=== PATIENT | female | born 1950 | race Caucasian/White ===

== ENCOUNTER 2020-02-17 07:58 | Outpatient (CLI) | payer MEDICARE, SELFPAY ==
--- NOTE | ~2020-02-17 | MM_ITS ---
EXAMINATION: MM screening nettie LT w alyssia HISTORY: Screening mammogram of left breast; status post right mastectomy in 2002 TECHNIQUE: Craniocaudal and mediolateral oblique 3-D tomosynthesis images were obtained and synthetic 2-D images were generated. CAD analysis was submitted and interpreted. COMPARISON: 02/04/2019, 01/31/2018, 11/28/2016 left digital screening mammogram 12/06/2016 diagnostic left digital mammogram BREAST PARENCHYMAL COMPOSITION: There are scattered areas of fibroglandular density FINDINGS: There is focal irregular density at mid to posterior depth in the inner aspect of the left breast on craniocaudal projection, apparently in the lower inner quadrant. Diagnostic left mammogram and left breast ultrasound examination are recommended. Otherwise there is no evidence of suspicious mass, calcification, or architectural distortion to sugg est malignancy in the left breast. There has been no other suspicious interval change. IMPRESSION: 1. Focal irregular density in the lower inner left breast 2. Diagnostic left mammogram and left breast ultrasound examination are recommended. BI-RADS Category 0: Incomplete: Needs additional imaging evaluation. Reviewed, dictated and finalized at location A. IMPRESSION: 1. Focal irregular density in the lower inner left breast 2. Diagnostic left mammogram and left breast ultrasound examination are recomme nded. BI-RADS Category 0: Incomplete: Needs additional imaging evaluation.
== END 2020-02-17 07:59 | disposition home or self-care (01) ==
LOC: ANHIMG 08:00
PROVIDERS: PCP Family Medicine; Visit Provider Family Medicine
DX: Z12.31 Encounter for screening mammogram for malignant neoplasm of breast (principal); R92.8 Other abnormal and inconclusive findings on diagnostic imaging of breast
CPT/HCPCS: 77063; 77067

== ENCOUNTER 2020-03-08 11:58 | Outpatient (CLI) | payer MEDICARE, SELFPAY ==
--- NOTE | ~2020-03-08 | MM_ITS ---
EXAMINATION: MM diagnostic mammo unilat LT HISTORY: Focal irregular density in the lower inner left breast on 02/17/2020 screening mammogram TECHNIQUE: Additional 3-D tomosynthesis images of the left breast were performed and synthetic 2-D im ages were generated. CAD analysis was submitted and interpreted. COMPARISON: 02/17/2020 left digital screening mammogram FINDINGS: No reproducible mass or architectural distortion is detected at the area of asymmetry noted on the screening mammogram in the lower inner quadrant. IMPRESSION: 1. No mammographic evidence of malignancy 2. Routine mammographic screening follow-up is recommended BI-RADS Category 1: Negative Reviewed, dictated and finalized at location A.
== END 2020-03-08 11:59 | disposition home or self-care (01) ==
LOC: ANHIMG 12:03
PROVIDERS: PCP Family Medicine; Visit Provider Family Medicine
DX: Z85.3 Personal history of malignant neoplasm of breast (principal)
CPT/HCPCS: 77065

== ENCOUNTER 2021-03-17 09:06 | Emergency (ER) | payer MEDICARE, SELFPAY ==
--- NOTE | ~2021-03-17 | XR_ITS ---
EXAMINATION: XR knee LT min 4V DATE: 03/17/2021 09:51 INDICATION: Left knee pain. Twisting injury. TECHNIQUE: 4 views of left knee were obtained. COMPARISON: None. FINDINGS: Bone alignment is normal. No fracture. There is mild tricompartmental osteoarthritis cathet erize by tiny marginal osteophytes. No joint space narrowing. There is a moderate-sized knee joint ef fusion. IMPRESSION: 1. Mild left knee osteoarthritis. 2. Moderate-sized left knee joint effusion. Reviewed, dictated and finalized at location A.
[2021-03-17 09:17] VITALS: BP 118/59; PULSE 70; RESP 16; TEMP 35.7; O2SAT 99
--- NOTE | 2021-03-17 09:34 | ED.LOWEXIN ---
HPI - Extremity Injury (Lower) General Chief Complaint: Extremity Injury, Lower Stated Complaint: Left Knee Pain Time Seen by Provider: 03/17/21 09:34 Source: patient Mode of arrival: ambulatory Limitations: no limitations History of Present Illness HPI Narrative: Debi Sanchez is a 70 yo female with PMH of high cholesterol tweaked her left foot when she was swinging a golf club yesterday on wet grass, states she went down immediately and has had pain in the left posterior lateral patella and lower left leg. States she has no pain as long she sits still and does not try to flex her leg, blood pressure noted to stand up Related Data Home Medications Medication Instructions Recorded Confirmed atorvastatin 03/17/21 Allergies Allergy/AdvReac Type Severity Reaction Status Date / Time iohexol Allergy Unknown Verified 06/20/19 12:48 [From CONTRAST - CT, XRAY] shellfish derived AdvReac unknown Verified 01/15/20 11:43 Review of Systems Review of Systems: CONSTITUTIONAL: Denies fever, chills, sweats. EYES: Denies visual changes, redness, discharge. ENT: Denies rhinorrhea, congestion, sore throat, otalgia. CARDIOVASCULAR: Denies chest pain, palpitations, edema. RESPIRATORY: Denies dyspnea, wheezing, cough GASTROINTESTINAL: Denies abdominal pain, nausea, vomiting, diarrhea. GENITOURINARY: Denies dysuria, hematuria, abnormal discharge SKIN: Denies rash or itching. NEUROLOGIC: Denies numbness, or focal weakness. PSYCHIATRIC: Denies anxiety or depression. Left posterior leg pain PMFSH Past Medical History Medical History Abnormal mammogram of left breast Biceps tendonitis on left Breast cancer Right, 2002 History of chemotherapy Paresthesia of right lower extremity Surgical History Surgical History H/O mastectomy Right breast, 2002 H/O: hysterectomy History of foot surgery Left Hx of tonsillectomy Status post dilation and curettage x3 Family History Family History Mother Patient's mother is , Onset Age: 75 Family history of pancreatic cancer Family history of pancreatic disease Social History Social History Smoking status: Never smoker Alcohol intake: current Alcohol use details: Occasional Gender identity (if verbalized by the patient): Female Comments At time of signature, I agree with nursing past medical, surgical, social and family history. There is no relevant family history pertinent to the presenting complaint. Exam Narrative: GENERAL: This is a well-nourished, well-developed patient, in mild distress. HEAD: normocephalic, atraumatic. EYES: Sclera clear/white. Vision is grossly intact. EARS: External ears normal, . Hearing grossly intact. NOSE: External nose normal without nasal discharge, nares without redness, no rhinorrhea. THROAT: Mucous membranes moist, NECK: Neck supple, CARDIOVASCULAR: Regular rate and rhythm without murmurs, gallops, or rubs. RESPIRATORY: Clear to auscultation. Breath sounds equal bilaterally. No wheezes, rales, or rhonchi. GASTROINTESTINAL: Abdomen soft, SKIN: warm, intact with no suspicious lesions or rash, good texture and turgor. NEURO: awake, alert, and oriented to person, place and time. There were no obvious focal neurologic abnormalities. Steady gait EXTREMITIES: Normal range of motion. Pain on attempt to stand up or with flexing of left leg pain is the posterior lateral side of patella that runs on the lower leg; no bruising no edema BACK: Nontender without deformity Course Course Emergency Course: Patient comes to [facility] with pain in left posterior knee X-ray done which showed effusion in L knee Given directions on rice, high dose ibuprofen Vital Signs Vital signs: Vital Signs Temperature 96.3
--- NOTE | 2021-03-17 10:24 | PC.NURSE ---
Addendum entered by Puja Handley RN 03/17/21 10:37: pt again changed mind and does not want knee immobilizer Original Note: Pt changed her mind and does take knee immobilizer. PCT placed knee immobilizer for comfort.
== END 2021-03-17 10:39 | disposition home or self-care (01) ==
PROVIDERS: Emergency Provider Nurse Practitioner; PCP Family Medicine
DX: M25.462 Effusion, left knee (principal); Z85.3 Personal history of malignant neoplasm of breast; Z92.21 Personal history of antineoplastic chemotherapy; Z90.11 Acquired absence of right breast and nipple; E78.00 Pure hypercholesterolemia, unspecified
CPT/HCPCS: 73564; 99213; G0463; L1830

== ENCOUNTER 2021-03-22 10:36 | Outpatient (CLI) | payer MEDICARE, SELFPAY ==
--- NOTE | ~2021-03-22 | MM_ITS ---
EXAMINATION: MM screening nettie LT w alyssia HISTORY: Screening. TECHNIQUE: Craniocaudal and mediolateral oblique 3-D tomosynthesis images were obtained and synthetic 2-D images were generated. CAD analysis was submitted and interpreted. COMPARISON: Comparison to multiple prior studies sequentially, with oldest reviewed study dated 03/2017.. BREAST PARENCHYMAL COMPOSITION: There are scattered areas of fibroglandular density. FINDINGS: There is no evidence of suspicious mass, calcification, or architectural distortion to sugg est malignancy in the left breast. There has been no suspicious interval change. IMPRESSION: 1. No mammographic evidence of malignancy. 2. Recommend routine screening mammography in one year. BI-RADS Category 1: Negative Reviewed, dictated and finalized at location A.
== END 2021-03-22 10:37 | disposition home or self-care (01) ==
LOC: ANHIMG 10:37
PROVIDERS: PCP Family Medicine; Visit Provider Family Medicine
DX: Z12.31 Encounter for screening mammogram for malignant neoplasm of breast (principal)
CPT/HCPCS: 77063; 77067

== ENCOUNTER 2021-04-28 19:38 | Emergency (ER) | payer MEDICARE, SELFPAY ==
[2021-04-28 19:55] VITALS: BP 129/75; PULSE 74; RESP 16; TEMP 36.9; O2SAT 100
--- NOTE | 2021-04-28 19:57 | ED.FEMALEGU ---
HPI - Female Genitourinary General Chief complaint: Urogenital-Female Stated complaint: UTI Time Seen by Provider: 04/28/21 19:57 Source: patient Mode of arrival: ambulatory Limitations: no limitations History of Present Illness HPI Narrative: Debi Shepard [place] Prolastin course amado is a 70 yo female with a PMH of high cholesterol, breast cancer, who comes in for urinary burning urinary burning that started today. no fever, nausea, vomiting, diarrhea Related Data Home Medications Medication Instructions Recorded Confirmed atorvastatin 03/17/21 03/21/21 Allergies Allergy/AdvReac Type Severity Reaction Status Date / Time iohexol Allergy Unknown Verified 04/28/21 19:50 [From CONTRAST - CT, XRAY] shellfish derived AdvReac unknown Verified 04/28/21 19:50 Review of Systems Review of Systems: CONSTITUTIONAL: Denies fever, chills, sweats. EYES: Denies visual changes, redness, discharge. ENT: Denies rhinorrhea, congestion, sore throat, otalgia. CARDIOVASCULAR: Denies chest pain, palpitations, edema. RESPIRATORY: Denies dyspnea, wheezing, cough GASTROINTESTINAL: Denies abdominal pain, nausea, vomiting, diarrhea. GENITOURINARY: Has dysuria, hematuria, abnormal discharge SKIN: Denies rash or itching. NEUROLOGIC: Denies numbness, or focal weakness. PSYCHIATRIC: Denies anxiety or depression. [facility] Past Medical History Medical History (Updated 04/28/21 @ 20:02 by Aileen Salguero CNP) Abnormal mammogram of left breast Biceps tendonitis on left Breast cancer Right, 2002 High cholesterol History of chemotherapy Paresthesia of right lower extremity Surgical History Surgical History H/O mastectomy Right breast, 2002 H/O: hysterectomy History of foot surgery Left Hx of tonsillectomy Status post dilation and curettage x3 Family History Family History Mother Patient's mother is , Onset Age: 75 Family history of pancreatic cancer Family history of pancreatic disease Social History Social History Smoking status: Never smoker Alcohol intake: current Alcohol use details: Occasional Gender identity (if verbalized by the patient): Female Comments At time of signature, I agree with nursing past medical, surgical, social and family history. There is no relevant family history pertinent to the presenting complaint. Exam Narrative: GENERAL: This is a well-nourished, well-developed patient, in mild distress. HEAD: normocephalic, atraumatic. EYES: Sclera clear/white. Vision is grossly intact. EARS: External ears normal, . Hearing grossly intact. NOSE: External nose normal without nasal discharge, nares without redness, no rhinorrhea. THROAT: Mucous membranes moist, NECK: Neck supple, CARDIOVASCULAR: Regular rate and rhythm without murmurs, gallops, or rubs. RESPIRATORY: Clear to auscultation. Breath sounds equal bilaterally. No wheezes, rales, or rhonchi. GASTROINTESTINAL: Abdomen soft, SKIN: warm, intact with no suspicious lesions or rash, good texture and turgor. NEURO: awake, alert, and oriented to person, place and time. There were no obvious focal neurologic abnormalities. Steady gait EXTREMITIES: Normal range of motion. BACK: Nontender without deformity Course Course Emergency Course: Patient comes with a burning that started today with urination UA shows trace of blood and nitrites Started on Keflex, Vital Signs Vital signs: Vital Signs Temperature 98.5 F 04/28/21 19:55 Pulse Rate 74 04/28/21 19:55 Respiratory Rate 16 04/28/21 19:55 Blood Pressure 129/75 04/28/21 19:55 Pulse Oximetry 100 04/28/21 19:55 Temperature 98.5 F 04/28/21 19:55 Pulse Rate 74 04/28/21 19:55 Respiratory Rate 16 04/28/21 19:55 Blood Pressure 129/75 04/28/21 19:55 Pulse Oximetry 100 04/28/21 19:55
== END 2021-04-28 20:15 | disposition home or self-care (01) ==
PROVIDERS: Emergency Provider Nurse Practitioner; PCP Family Medicine
DX: N30.01 Acute cystitis with hematuria (principal); E78.00 Pure hypercholesterolemia, unspecified; Z85.3 Personal history of malignant neoplasm of breast; Z92.21 Personal history of antineoplastic chemotherapy; Z90.11 Acquired absence of right breast and nipple
CPT/HCPCS: 81003; 87086; 99213; G0463

== ENCOUNTER 2021-10-23 12:33 | Emergency (ER) | payer MEDICARE, SELFPAY ==
[2021-10-23 12:40] VITALS: BP 121/59; PULSE 85; RESP 18; TEMP 36.5; O2SAT 99
--- NOTE | 2021-10-23 12:44 | ED.URI ---
HPI - URI/Sore Throat General Chief Complaint: Upper Respiratory Infection Stated Complaint: uri Time Seen by Provider: 10/23/21 12:45 Source: patient, family, RN notes reviewed and old records reviewed Mode of arrival: ambulatory Limitations: no limitations History of Present Illness HPI Narrative: 71-year-old female presents to the [facility] with complaints of sinus congestion for at least 10 days. Reports sinus pressure, rhinorrhea. Has tried [id number] products with no relief. Patient is COVID and flu vaccinated. Denies fevers, nausea, vomiting or diarrhea. Denies chest pain, coughing. No abdominal pain MD elicited complaint: rhinorrhea, nasal congestion and sinus pain Related Data Home Medications Medication Instructions Recorded Confirmed atorvastatin 10 mg PO DAILY 03/17/21 10/23/21 Allergies Allergy/AdvReac Type Severity Reaction Status Date / Time iohexol Allergy Unknown Verified 10/23/21 12:37 [From CONTRAST - CT, XRAY] shellfish derived AdvReac unknown Verified 10/23/21 12:37 Review of Systems Review of Systems: All systems reviewed & are unremarkable except as noted in HPI and below Constitutional: Constitutional: Reports no additional constitutional complaints, Denies chills, Denies fever(s) and Denies headache(s) Eyes: Eyes: Reports no additional eye complaints ENT: Reports as per HPI, Denies vertigo, Denies dizziness, Denies headache(s), Reports nasal congestion, Reports nasal discharge, Reports post nasal drip, Denies sore throat and Denies throat swelling Cardiovascular: Cardiovascular: Reports no additional cardiovascular complaints, Denies chest pain, Denies syncope, Denies rapid heart rate and Denies dyspnea Respiratory: Respiratory: Reports no additional respiratory complaints, Denies cough, Denies dyspnea and Denies wheezing Gastrointestinal: Gastrointestinal: Reports no additional gastrointestinal complaints, Denies abdominal pain, Denies diarrhea, Denies nausea and Denies vomiting Musculoskeletal: Musculoskeletal: Reports no additional musculoskeletal complaints and Denies numbness Integumentary/Breasts: Skin/Breast: Reports system reviewed and no additional complaints, except as docu Neurologic: Reports system reviewed and no additional complaints, except as documented, Denies vertigo, Denies dizziness, Denies syncope, Denies headache(s), Denies focal weakness and Denies numbness Psychiatric: Psychiatric: Reports no additional psychiatric complaints Allergic/Immunologic: Allergic/Immunologic: Reports no additional allergic/immunologic complaints and Denies wheezing PMFSH Past Medical History Medical History Abnormal mammogram of left breast Biceps tendonitis on left Breast cancer Right, 2002 High cholesterol History of chemotherapy Paresthesia of right lower extremity Surgical History Surgical History H/O mastectomy Right breast, 2002 H/O: hysterectomy History of foot surgery Left Hx of tonsillectomy Status post dilation and curettage x3 Family History Family History Mother Patient's mother is , Onset Age: 75 Family history of pancreatic cancer Family history of pancreatic disease Social History Social History Smoking status: Never smoker Alcohol intake: current Alcohol use details: Occasional Gender identity (if verbalized by the patient): Female Comments At the time of my signature, I reviewed and agree with the nursing past medical, surgical, social, and family history. There is no relevant family history pertinent to the patient complaint. Exam Const: General: cooperative, no acute distress, well developed, alert and ill appearing acutely (Mild) Nutritional Appearance: well nourished Orientation/consciousness:
== END 2021-10-23 12:55 | disposition home or self-care (01) ==
PROVIDERS: Emergency Provider Nurse Practitioner; PCP Family Medicine
DX: J01.40 Acute pansinusitis, unspecified (principal); E78.00 Pure hypercholesterolemia, unspecified; Z85.3 Personal history of malignant neoplasm of breast; Z92.21 Personal history of antineoplastic chemotherapy; Z90.11 Acquired absence of right breast and nipple
CPT/HCPCS: 99213; G0463

== ENCOUNTER 2022-05-09 07:53 | Outpatient (CLI) | payer MEDICARE, SELFPAY ==
--- NOTE | ~2022-05-09 | MM_ITS ---
EXAMINATION: MM screening nettie LT w alyssia HISTORY: Screening TECHNIQUE: Craniocaudal and mediolateral oblique 3-D tomosynthesis images were obtained and synthetic 2-D images were generated. CAD analysis was submitted and interpreted. COMPARISON: Comparison to multiple prior studies sequentially, with oldest reviewed study dated 12/06. BREAST PARENCHYMAL COMPOSITION: Breast composed of scattered areas of fibroglandular density FINDINGS: There is no evidence of suspicious mass, calcification, or architectural distortion to sugg est malignancy in the left breast. There has been no suspicious interval change. IMPRESSION: 1. No mammographic evidence of malignancy. 2. Recommend routine screening mammography in one year. BI-RADS Category 1: Negative Reviewed, dictated and finalized at location A.
== END 2022-05-09 07:54 | disposition home or self-care (01) ==
PROVIDERS: PCP Family Medicine; Visit Provider Family Medicine
DX: Z12.31 Encounter for screening mammogram for malignant neoplasm of breast (principal)
CPT/HCPCS: 77063; 77067

== ENCOUNTER 2023-02-13 10:34 | Emergency (ER) | payer MEDICARE, SELFPAY ==
--- NOTE | ~2023-02-13 | XR_ITS ---
EXAMINATION: XR knee LT min 4V DATE: 02/13/2023 11:57 INDICATION: Left knee injury with medial sided laceration and bruising TECHNIQUE: Anteroposterior, 2 oblique and crosstable lateral views of the left knee were obtained COMPARISON: None. FINDINGS: Alignment is normal. No fracture. Tiny marginal osteophytes in all 3 compartments consistent with at least mild osteoarthritis with no evident joint space narrowing on nonweightbearing imaging. No join t effusion/layering lipohemarthrosis. Soft tissues are unremarkable. No evident radiopaque foreign jennie dies. IMPRESSION: 1. Mild left knee osteoarthritis. No acute osseous abnormality, joint effusion or radiopaque foreign body. Reviewed, dictated and finalized at location A.
[2023-02-13 10:38] VITALS: BP 144/67; PULSE 94; RESP 16; TEMP 36.5; O2SAT 98
[2023-02-13] MEDS: TETANUS,DIPHTHERIA,AC PERTUSSIS ADULT (0.5 ML) BOOSTRIX IM (11:57)
[2023-02-13] MEDS: KETOROLAC 30 MG/ML VIAL (*BKC) IM (11:58)
[2023-02-13] MEDS: HYDROcodone/acetaminophen (*CRX) 5-325 MG TABLET 1 TAB PO (11:59)
[2023-02-13] MEDS: BACITRACIN OINTMENT 15 GM TUBE 1 APPLIC TOPICAL (12:00)
[2023-02-13] MEDS: LIDO 2%/EPINEPHRINE 1:100,000 20 ML VIAL 10 ML INFILTRATE (12:00)
--- NOTE | 2023-02-13 12:19 | ED.GENADULT ---
HPI - General Adult General Chief complaint: Wound/Laceration Stated complaint: knee laceration Time Seen by Provider: 02/13/23 11:11 History of Present Illness HPI narrative: Debi Sanchez is a 72 y/o female who presents today with reports of tripping without falling but hitting her left knee on her metal chair outside. She has about a 6.5 cm laceration to the medial aspect of her left knee. She does not know when her last Tdap was. ROM intact. Denies hitting her head/LOC / no other injuries from incident. Related Data Home Medications Medication Instructions Recorded Confirmed atorvastatin 10 mg tablet 10 mg PO DAILY 03/17/21 10/23/21 Allergies Allergy/AdvReac Type Severity Reaction Status Date / Time iohexol Allergy Unknown Verified 10/23/21 12:37 [From CONTRAST - CT, XRAY] shellfish derived AdvReac unknown Verified 10/23/21 12:37 Review of Systems Review of Systems: CONSTITUTIONAL: Denies fever, chills, or sweats. EYES: Denies visual changes, redness, or discharge. ENT: Denies rhinorrhea, congestion, sore throat, or otalgia. CARDIOVASCULAR: Denies chest pain, palpitations, or edema. RESPIRATORY: Denies cough or dyspnea. GASTROINTESTINAL: Denies abdominal pain, nausea, vomiting, or diarrhea. GENITOURINARY: Denies dysuria or hematuria. SKIN: Denies rash or itching. MUSCULOSKELETAL: Complains of pain to left knee after cutting it accidentally on a metal chair. NEUROLOGIC: Denies headache, numbness, dizziness, or weakness. PSYCHIATRIC: Denies anxiety or depression. [facility] Past Medical History Medical History Abnormal mammogram of left breast Biceps tendonitis on left Breast cancer Right, 2002 High cholesterol History of chemotherapy Paresthesia of right lower extremity Surgical History Surgical History H/O mastectomy Right breast, 2002 H/O: hysterectomy History of foot surgery Left Hx of tonsillectomy Status post dilation and curettage x3 Family History Family History Mother Patient's mother is , Onset Age: 75 Family history of pancreatic cancer Family history of pancreatic disease Social History Social History Smoking status: Never smoker Alcohol intake: current Alcohol use details: Occasional Gender identity (if verbalized by the patient): Female Exam Narrative: GENERAL: Well-appearing, well-nourished, and in no acute distress. HEAD: Normocephalic, atraumatic. EYES: PERRLA and EOMI. ENT: Nares clear, no rhinorrhea or epistaxis. Mucous membranes moist. Oropharynx without tonsillar hypertrophy exudate or other lesions. NECK: Supple. No adenopathy or masses. No carotid bruits or JVD CHEST: Clear to auscultation. No respiratory distress. No wheezes rales or rhonchi HEART: Regular rate and rhythm. No murmur heard. Normal peripheral pulses. ABDOMEN: Soft, nontender, nondistended, normal active bowel sounds. EXTREMITIES: Normal range of motion. No edema. 6.5 cm laceration noted to the medial aspect of left knee, no active bleeding noted. SKIN: Warm, dry, no rash. NEURO: No focal deficits. Alert and oriented x3. PSYCH: Normal mood and affect. Course Vital Signs Vital signs: Vital Signs Temperature 36.5 C 02/13/23 10:38 Pulse Rate 94 02/13/23 10:38 Respiratory Rate 16 02/13/23 10:38 Blood Pressure 144/67 H 02/13/23 10:38 Pulse Oximetry 98 02/13/23 10:38 Oxygen Delivery Room Air 02/13/23 10:38 Temperature 36.5 C 02/13/23 10:38 Pulse Rate 94 02/13/23 10:38 Respiratory Rate 16 02/13/23 10:38 Blood Pressure 144/67 H 02/13/23 10:38 Pulse Oximetry 98 02/13/23 10:38 Oxygen Delivery Room Air 02/13/23 10:38 Procedures Laceration Laceration 1: Date: 02/13/23 Time: 13:04 Site:
== END 2023-02-13 13:20 | disposition home or self-care (01) ==
PROVIDERS: Emergency Provider Nurse Practitioner Family; PCP Family Medicine
DX: S81.012A Laceration without foreign body, left knee, initial encounter (principal); W18.40XA Slipping, tripping and stumbling without falling, unspecified, initial encounter; W22.09XA Striking against other stationary object, initial encounter; Z85.3 Personal history of malignant neoplasm of breast; Z23 Encounter for immunization
CPT/HCPCS: 12002; 73564; 90471; 90715; 96372; 99283; A9270; J1885

== ENCOUNTER 2023-03-07 15:25 | Outpatient (CLI) | payer MEDICARE, SELFPAY ==
--- NOTE | ~2023-03-07 | DEXA_ITS ---
Bone Density Report Name: ROSAURA GAYLE Age: 72 Sex: Female Ethnicity: White Date of : 1950 Indication: postmenopausal; screening for osteoporosis; cancer; hysterectomy; Referring Provider: STEVE, MARY Denny Study: Bone densitometry was performed. Exam Date: March 07, 2023 Accession number: [id number] Bone Density: Region BMD T-score Z-score Classification AP Spine(L1-L4) 0.851 -1.8 0.6 Osteopenia Femoral Neck (Left) 0.689 -1.4 0.6 Osteopenia Total Hip (Left) 0.775 -1.4 0.4 Osteopenia Femoral Neck (Right) 0.656 -1.7 0.3 Osteopenia Total Hip (Right) 0.724 -1.8 0.0 Osteopenia Total Hip Mean 0.749 -1.6 0.2 Osteopenia World Health Organization criteria for BMD impression classify patients as: Normal (T-score at or above -1.0), Osteopenia (T-score between -1.0 and -2.5), or Osteoporosis (T-score at or below -2.5). 10-year Fracture Risk(1): Major Osteoporotic Fracture 12% Hip Fracture 2.6% Reported Risk Factors: [place] (), Neck BMD=0.656, BMI=24.7 (1) FRAX(R) Version 3.08. Fracture probability calculated for an untreated patient. Fracture probability may be lower if the patient has received treatment. Clinical Information Provided by Patient: Has the following medical conditions: Cancer, Hysterectomy Patient maximum height was 64 Menopause Age: 33 Drinks caffeinated beverages Onset of menses at age 10 Number of children 2 Impression: The patient has low bone mass, based on the Total Spine T-score. The patient has an estimated ten-year risk of hip fracture of 2.6% and an estimated ten-year risk of major fracture of 12%, based on the WHO FRAX algorithm. Discussion: BONE DENSITY IS LOW AT ONE OR MORE SKELETAL SITES. This patient's lowest T-score is low at one or more skeletal sites. It meets the World Health Organization's (WHO) criteria for ?low bone mass? (T-score between -1.0 and -2.5). The patient's 10-year risk of fracture as calculated by FRAX is less than the threshold where pharmacological therapy is recommended by the National Osteoporosis Foundation (NOF). However, all treatment decisions require clinical judgment and consideration of individual patient factors, including patient preferences, comorbidities, previous drug use, risk factors not captured in the FRAX model (e.g., frailty, falls, vitamin D deficiency, increased bone turnover, interval significant decline in bone density) and possible under or overestimation of fracture risk by FRAX. The patient should follow a healthful lifestyle (good nutrition with adequate calcium and vitamin D, and appropriate weight-bearing exercise). Follow-Up: Consider repeating this study in 2 to 3 years to reassess this patient's status, or sooner if there is some new clinical indication. Reported by: RIOS muro
== END 2023-03-07 15:26 | disposition home or self-care (01) ==
LOC: ANHIMG 15:32
PROVIDERS: PCP Family Medicine; Visit Provider Family Medicine
DX: Z91.89 Other specified personal risk factors, not elsewhere classified (principal); Z78.0 Asymptomatic menopausal state; M85.88 Other specified disorders of bone density and structure, other site; M85.852 Other specified disorders of bone density and structure, left thigh; M85.851 Other specified disorders of bone density and structure, right thigh
CPT/HCPCS: 77080

== ENCOUNTER 2023-07-17 08:31 | Outpatient (CLI) | payer MEDICARE, SELFPAY ==
--- NOTE | ~2023-07-17 | MM_ITS ---
EXAMINATION: MM screening nettie LT w alyssia HISTORY: Screening mammogram TECHNIQUE: Craniocaudal and mediolateral oblique 3-D tomosynthesis images were obtained and synthetic 2-D images were generated. Rotated lateral craniocaudal view. ..CAD analysis was submitted and inter preted. COMPARISON: 05/09/2022, 03/22/2021, 03/08/2020, 02/17/2020 screening and diagnostic left mammogram exam[facility] [place] BREAST PARENCHYMAL COMPOSITION: There are scattered areas of fibroglandular density. FINDINGS: Status post right mastectomy. There is no evidence of suspicious mass, calcification, or ar chitectural distortion to suggest malignancy in the left breast. There has been no suspicious interva l change. IMPRESSION: 1. Status post right mastectomy. No mammographic evidence of left breast malignancy. 2. Recommend routine screening mammography in one year. BI-RADS Category 1: Negative Reviewed, dictated and finalized at location A. [facility] IMPRESSION: 1. Status post right mastectomy. No mammographic evidence of left breast malign kan. 2. Recommend routine screening mammography in one year. BI-RADS Category 1: Negative
== END 2023-07-17 08:32 | disposition home or self-care (01) ==
PROVIDERS: PCP Family Medicine; Visit Provider Family Medicine
DX: Z12.31 Encounter for screening mammogram for malignant neoplasm of breast (principal)
CPT/HCPCS: 77063; 77067

== ENCOUNTER 2023-08-02 09:50 | Outpatient (CLI) | payer MEDICARE, SELFPAY ==
--- NOTE | ~2023-08-02 | MM_ITS ---
EXAMINATION: MM diagnostic nettie LT w alyssia HISTORY: Left breast pain TECHNIQUE: Craniocaudal, mediolateral, and mediolateral oblique 3-D tomosynthesis images of the left breast were performed and synthetic 2-D images were generated. CAD analysis was submitted and interpr eted. High resolution limited left breast ultrasound was performed. COMPARISON: 07/17/2023, 05/09/2022, 03/22/2021 FINDINGS: MAMMOGRAPHIC FINDINGS: There is a 1.5 x 1.0 cm irregular high density mass with spiculated margins in the middle third of th e lower inner breast at the 6:00 location, 4 cm from the nipple. No mammographic correlate is identif ied for the reported pain in the far upper outer quadrant of the left breast. ULTRASOUND: There is a 1.5 x 1.0 cm irregular, not parallel, hypoechoic mass with indistinct margins at the 6:30 location, 4 cm from the nipple which demonstrates posterior acoustic shadowing and correlates with th e mammographic finding. No sonographic correlate is identified for the reported pain in the far upper outer quadrant of the breast. IMPRESSION: 1. Suspicious left breast mass. 2. Ultrasound-guided biopsy is recommended. BI-RADS category 5, highly suggestive of malignancy. Reviewed, dictated and finalized at location A. [employer]
== END 2023-08-02 09:51 | disposition home or self-care (01) ==
LOC: CHSIMG 09:54
PROVIDERS: PCP Family Medicine; Visit Provider Physician Assistant
DX: N64.4 Mastodynia (principal); R92.8 Other abnormal and inconclusive findings on diagnostic imaging of breast
CPT/HCPCS: 76642; 77061; 77065; G0279

== ENCOUNTER 2023-09-12 16:46 | Emergency (ER) | payer MEDICARE, SELFPAY ==
[2023-09-12 16:56] VITALS: BP 130/73; PULSE 72; RESP 16; TEMP 37.1; O2SAT 100
--- NOTE | 2023-09-12 17:04 | ED.GENADULT ---
HPI - General Adult General Chief complaint: Urogenital-Female Stated complaint: UTI Source: patient, RN notes reviewed and old records reviewed Mode of arrival: ambulatory Limitations: no limitations History of Present Illness HPI narrative: 72-year-old female presents to [facility] with complaints polyuria and dysuria that started last p.m.. Patient denies any other symptoms at this time. Related Data Home Medications Medication Instructions Recorded Confirmed atorvastatin 10 mg tablet 10 mg PO DAILY 03/17/21 09/12/23 latanoprost 0.005 % eye drops 1 drp EACH EYE HS 09/12/23 09/12/23 Allergies Allergy/AdvReac Type Severity Reaction Status Date / Time iohexol Allergy Unknown Verified 09/12/23 16:54 [From CONTRAST - CT, XRAY] shellfish derived AdvReac unknown Verified 09/12/23 16:54 Review of Systems Constitutional: Constitutional: Reports no additional constitutional complaints, Denies body ache(s), Denies chills, Denies fatigue, Denies fever(s) and Denies headache(s) Eyes: Eyes: Reports no additional eye complaints and Denies blurry vision ENT: Reports system reviewed and no additional complaints, except as documented, Denies vertigo, Denies dizziness, Denies ear discharge, Denies otalgia, Denies facial pain, Denies headache(s), Denies nasal congestion, Denies nasal discharge, Denies sinus pain, Denies sinus pressure and Denies sore throat Cardiovascular: Cardiovascular: Reports no additional cardiovascular complaints, Denies chest pain, Denies chest pain at rest, Denies rapid heart rate and Denies dyspnea Respiratory: Respiratory: Reports no additional respiratory complaints, Denies chest congestion, Denies cough, Denies pain on inspiration, Denies pain with cough and Denies dyspnea Gastrointestinal: Gastrointestinal: Denies abdominal pain, Denies diarrhea, Denies nausea and Denies vomiting Genitourinary: Genitourinary: Reports nocturia and Reports dysuria Integumentary/Breasts: Skin/Breast: Denies rash Neurologic: Reports system reviewed and no additional complaints, except as documented, Denies vertigo, Denies dizziness and Denies headache(s) Endocrine: Endocrine: Denies fatigue PMFSH Past Medical History Medical History Abnormal mammogram of left breast Biceps tendonitis on left Breast cancer Right, 2002 High cholesterol History of chemotherapy Paresthesia of right lower extremity Surgical History Surgical History H/O mastectomy Right breast, 2002 H/O: hysterectomy History of foot surgery Left Hx of tonsillectomy Status post dilation and curettage x3 Family History Family History Mother Patient's mother is , Onset Age: 75 Family history of pancreatic cancer Family history of pancreatic disease Social History Social History Smoking status: Never smoker Alcohol intake: current Alcohol use details: Occasional Gender identity (if verbalized by the patient): Female Comments At the time of my signature, I reviewed and agree with the nursing past medical, surgical, social, and family history. There is no relevant family history pertinent to the patient complaint. Exam Const: General: cooperative, healthy appearing, no acute distress and well nourished Nutritional Appearance: well nourished Orientation/consciousness: patient oriented x3 Limitations: no limitations HENMT: Head: normal to inspection and normocephalic Ears: external ears normal Face/Nose/Sinus: normal facial exam Face and sinus: normal facial exam Mouth: Yes Normal oral and palatal mucosa present and Yes moist mucous membranes Eyes: General: appearance normal, both eyes and all related structures Sclera: sclerae normal Pupils: Equal, round and reactive pupils present Resp: Effo
== END 2023-09-12 17:10 | disposition home or self-care (01) ==
PROVIDERS: Emergency Provider Registered Nurse; PCP Family Medicine
DX: R30.0 Dysuria (principal); R35.89 Other polyuria; E78.00 Pure hypercholesterolemia, unspecified; Z85.3 Personal history of malignant neoplasm of breast; Z90.11 Acquired absence of right breast and nipple; Z92.21 Personal history of antineoplastic chemotherapy
CPT/HCPCS: 81003; 87086; 99213; G0463

== ENCOUNTER 2023-10-07 00:28 | Emergency (ER) | payer MEDICARE, SELFPAY ==
[2023-10-07] VITALS (8 sets, daily range): BP systolic 125–151; BP diastolic 59–88; PULSE 72–86; RESP 15–20; TEMP 36.3–37.1; O2SAT 94–99
--- NOTE | ~2023-10-07 | CT_ITS ---
EXAMINATION: CT abdomen pelvis wo con DATE: 10/07/2023 03:10 INDICATION: Left-sided abdominal pain. TECHNIQUE: Computed tomography (CT) of the abdomen and pelvis was performed without intravenous contr ast. Automated exposure control and iterative reconstruction technique were employed. The dose-length product was 363.00 mGy-cm. COMPARISON: None FINDINGS: Mild discoid atelectasis in the bilateral lower lobes. Heart size is normal. No pericardial or pleura l effusion. Surgical drain and some adjacent soft tissue gas extending along the anterior mid left ch est wall. Small sliding-type hiatal hernia. Liver, gallbladder, spleen, pancreas and bilateral adrena l glands are normal. Kidneys and ureters are normal with no urolithiasis, hydroureteronephrosis or pe rinephric/ureteral stranding. Bladder is normal. Several diverticula along the sigmoid colon without adjacent inflammatory stranding to suggest diverticulitis. No bowel obstruction. Bladder is normal. T he uterus is not identified and has likely been surgically resected. No free intraperitoneal gas or fluid. No pathologically enlarged abdominal or pelvic lymphadenopathy. Mild to moderate lumbar spondylosis. IMPRESSION: 1. Postoperative changes with soft tissue gas and surgical drain at the anterior left chest wall. Cor relate with surgical history. 2. No acute intra-abdominal/pelvic process. 3. Small sliding-type hiatal hernia. Reviewed, dictated and finalized at location A. IMPRESSION: 1. Postoperative changes with soft tissue gas and surgical drain at the anterio r left chest wall. Correlate with surgical history. 2. No acute intra-abdominal/pelvic process. 3. Small sliding-type hiatal hernia.
[2023-10-07 01:29] LABS: Add Urine Microscopic? YES; Appearance Urine Clear (Clear); Bacteria Urine None Seen /hpf; Bilirubin Urine 1+ (Negative); Blood Urine Negative (Negative); Color Urine Dark Yellow (Yellow); Glucose Urine UA Negative (Negative); Ketones Urine Negative (Negative); Leukocyte Esterase Ur 1+ LEU/UL (Negative); Need Manual Microscopic Reviewed; Nitrate Urine Positive (Negative); Non Pathogenic Casts 0-2; Protein Urine Trace mg/dL (Negative); RBC Urine 0-2 /hpf (0-2); Specific Grav Ur 1.012 (1.001-1.035); Squamous Epithelial Cell Urine None Seen /hpf (Few); WBC Urine 0-5 /hpf (0-3); pH Urine 7.5 (5.0-9.0)
--- NOTE | 2023-10-07 02:22 | ED.FEMALEGU ---
HPI - Female Genitourinary General Chief complaint: Urogenital-Female <NASEEM Cole Last Filed: 10/07/23 16:59> Stated complaint: Urinary burning and frequency <NASEEM Cole Last Filed: 10/07/23 16:59> Time Seen by Provider: 10/07/23 01:11 <NASEEM Cole Last Filed: 10/07/23 16:59> Source: patient <NASEEM Cole Last Filed: 10/07/23 16:59> Mode of arrival: ambulatory <NASEEM Cole Last Filed: 10/07/23 16:59> Limitations: no limitations <NASEEM Cole Last Filed: 10/07/23 16:59> History of Present Illness HPI Narrative: Patient is a 73-year-old female who presents to the ED with report of urinary complaints. Patient reports having urinary frequency, urinary urgency, dysuria, constant burning discomfort since night. She tried taking Azo at home without much improvement. Reported having nausea and vomiting today which prompted her presentation. Concerned for UTI. She denies significant abdominal pain, back pain, fevers, hematuria, vaginal bleeding. Patient underwent left breast mastectomy for breast cancer on Sunday at [facility]. She is unsure if she had a catheter at that time or not. She has been doing well since then otherwise. IZABELLA drain draining appropriately. <NASEEM Cole Last Filed: 10/07/23 16:59> Related Data Home medications: Home Medications Medication Instructions Recorded Confirmed atorvastatin 10 mg tablet 10 mg PO DAILY 03/17/21 09/12/23 latanoprost 0.005 % eye drops 1 drp EACH EYE HS 09/12/23 09/12/23 <NASEEM Cole Last Filed: 10/07/23 16:59> Allergies/Adverse reactions: Allergies Allergy/AdvReac Type Severity Reaction Status Date / Time iohexol Allergy Unknown Verified 10/07/23 07:18 [From CONTRAST - CT, XRAY] shellfish derived AdvReac unknown Verified 10/07/23 07:18 <Maricruz Jackson PA-C - Last Filed: 10/07/23 16:59> Review of Systems Review of Systems: CONSTITUTIONAL: Denies fever, chills, or sweats. GASTROINTESTINAL: See HPI. GENITOURINARY: See HPI. MUSCULOSKELETAL: Denies back pain <Maricruz Jackson PA-C - Last Filed: 10/07/23 16:59> All systems reviewed & are unremarkable except as noted in HPI and below <Maricruz Jackson PA-C - Last Filed: 10/07/23 16:59> PMFSH Past Medical History Medical History: Medical History Abnormal mammogram of left breast Biceps tendonitis on left Breast cancer Right, 2002 High cholesterol History of chemotherapy Paresthesia of right lower extremity <Maricruz Jackson PA-C - Last Filed: 10/07/23 16:59> Surgical History Surgical History: Surgical History H/O mastectomy Right breast, 2002 H/O: hysterectomy History of foot surgery Left Hx of tonsillectomy Status post dilation and curettage x3 <Maricruz Jackson PA-C - Last Filed: 10/07/23 16:59> Family History Family History: Family History Mother Patient's mother is , Onset Age: 75 Family history of pancreatic cancer Family history of pancreatic disease <Maricruz Jackson PA-C - Last Filed: 10/07/23 16:59> Social History Social History: Social History Smoking status: Never smoker Alcohol intake: current Alcohol use details: Occasional Gender identity (if verbalized by the patient): Female <Maricruz Jackson PA-C - Last Filed: 10/07/23 16:59> Exam Narrative: GENERAL: Well appearing, well-nourished, non-toxic, in no acute distress. HEAD: Normocephalic, atraumatic. RESPIRATORY: Airway patent, respirations nonlabored. Clear to auscultation bilaterally, no rales
[2023-10-07] MEDS: SODIUM CHLORIDE 0.9% IV 1,000 ML 999 ML IV CONT (02:55)
[2023-10-07] MEDS: ONDANSETRON INJ 4 MG/2 ML VIAL IV PUSH ×3 (02:56→07:33)
[2023-10-07] MEDS: MORPHINE SULFATE (*CRX) 4 MG/ML INJ IV PUSH (02:56)
[2023-10-07 02:59] LABS: Basophils Absolute Auto 0.1 K/mm3 (0.0-0.1); Basophils Percent Auto 0.6 % (0.2-1.2); Eosinophils Absolute Auto 0.1 K/mm3 (0-0.3); Eosinophils Percent Auto 0.5 % (0-4.4); Hematocrit 37.1 % (37.0-47.0); Hemoglobin 12.3 g/dL (12.0-15.0); Immature Granulocyte Absolute 0.03 K/mm3 (0.00-0.031); Immature Granulocyte Percent A 0.2 % (0-0.5); Lymphocytes Absolute Auto 2.95 K/mm3 (0.9-3.2); Lymphocytes Percent Auto 23.5 % (18.3-44.2); Mean Corpuscular HGB Conc 33.2 g/dl (32-36); Mean Corpuscular Hemoglobin 29.6 pg (26-34); Mean Corpuscular Volume 89.4 fl (80-100); Monocytes Absolute Auto 1.2 K/mm3 (0.1-0.6); Monocytes Percent Auto 9.6 % (2.6-8.5); Neutrophils Absolute Auto 8.2 K/mm3 (1.3-6.7); Neutrophils Percent Auto 65.6 % (45.5-73.1); Platelet Count Result 294 k/mm3 (150-375); Red Blood Count 4.15 M/mm3 (4.2-5.4); Red Cell Distribution Width 12.6 % (11.5-14.5); White Blood Count 12.5 K/mm3 (4.5-10.0)
[2023-10-07 03:11] LABS: Alanine Aminotransferase 15 U/L (6-35); Albumin Level 4.2 g/dL (3.5-5.1); Alkaline Phosphatase 99 U/L (38-126); Anion Gap 4 mmol/L (8-16); Aspartate Amino Transferase 27 U/L (14-36); Bilirubin,Total 0.9 mg/dL (0.2-1.3); Blood Urea Nitrogen 12 mg/dL (7-17); Calcium 9.8 mg/dL (8.4-10.2); Carbon Dioxide 27 mmol/L (22-30); Chloride 108 mmol/L (98-107); Estimated CRCL calculation 49 ml/min; Estimated Glomerular Filt Rate > 60; Glucose 105 mg/dL (65-110); Potassium 3.7 mmol/L (3.4-5.0); Sodium 139 mmol/L (137-145)
--- NOTE | 2023-10-07 04:09 | PC.NURSE ---
Patient states that she is feeling nauseous. Notified EDP Dr. Barnes
== END 2023-10-07 09:10 | disposition home or self-care (01) ==
PROVIDERS: Physician Assistant; Emergency Provider Emergency Medicine; PCP Family Medicine
DX: N30.00 Acute cystitis without hematuria (principal); Z98.890 Other specified postprocedural states; C50.912 Malignant neoplasm of unspecified site of left female breast; E78.00 Pure hypercholesterolemia, unspecified; Z92.21 Personal history of antineoplastic chemotherapy; Z85.3 Personal history of malignant neoplasm of breast; Z90.13 Acquired absence of bilateral breasts and nipples
CPT/HCPCS: 36415; 74176; 80053; 85025; 87086; 96365; 96375; 96376; 99284; J0696; J2270; J2405; J7030